=== PATIENT | male | born 1975 | race Caucasian/White ===

== ENCOUNTER 2023-04-11 10:13 | Outpatient (AMB) | payer BC, SELFPAY ==
--- NOTE | 2023-04-11 10:23 | A.OFFVIS_ITS ---
Intake Intake Visit Reasons: Low back pain Fuel Buyer Required: No Assessment & Plan Assessment & Plan (1) Back pain: Code(s): M54.9 - Dorsalgia, unspecified Qualifiers: Back pain location: thoracic back pain Chronicity: chronic Back pain laterality: midline Qualified Code(s): M54.6 - Pain in thoracic spine; G89.29 - Other chronic pain Plan Dear colleague Thank you for referring Garth Newsome to the office today with a chief complaint of upper lumbar back pain. HPI: This 47-year-old male is suffering from chronic back pain in the thoracolumbar region. The pain is constant and progressive. He suffering from this complaint for decades. He constantly wants to correct that part to get relief. Extension makes it better. Second complaint is lower back pain that is more shooting and comes with activity. Denies radiation down his legs. He tried chiropractic therapy in the past which gave him temporary relief. No other treatments done. He is looking for permanent solution. 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 Physical Exam: Pleasant male. Height 6'3 weight 260 lb. There is mild disc omfort on palpation at thoracolumbar area. No neurological deficits. Radiological Studies: An x-ray of the thoracic and lumbar spine show mild degeneration. No deformity. A CT of the lumbar spine is suspicious for osteopenia. An MRI of the lumbar spine is basically normal. Impression/Plan: This patient is suffering from chronic back pain for which there has no surgical solution. I reviewed the imaging with him in detail and pointed out that there is a possibility of osteopenia. I advised him to go to his primary care physician for a bone density test. This possibly could be a reason for back pain. He is also going to look for another chiropractor. He has not interested in injections although he is going to see Dr. Fuentes hydraulic controls technician in the near future Thank you for allowing me to participate in your patients care. total time spent was 30 minutes in counseling ,coordination of plan, personal review of imaging, surgical decision making and subsequent plan Garth Ragland MD, PhD Spine Fellowship Trained Neurosurgeon Director, [facility] Coding Level of Care Code New Pt Level 3 (68926) Diagnoses Chronic midline thoracic back pain M54.6; G89.29 Back pain location: thoracic back pain Chronicity: chronic Back pain laterality: midline
== END 2023-04-11 11:05 | disposition home or self-care (01) ==
PROVIDERS: PCP Internal Medicine; Visit Provider Neurological Surgery
DX: M54.6 Pain in thoracic spine (principal); G89.29 Other chronic pain
CPT/HCPCS: 99203

== ENCOUNTER → 2023-04-11 10:13 | Outpatient (BNVA) | payer BC, SELFPAY | PROVIDERS: PCP Internal Medicine; Visit Provider Neurological Surgery ==

== ENCOUNTER 2023-12-14 07:54 | Day surgery (SDC) | payer BC, SELFPAY ==
[2023-12-12 13:36] VITALS: BMI 32.1
--- OUTSIDE RECORDS SUMMARY | 2023-12-14 07:57 | XMS_ITS ---
Author Organization [facility] Address [address] [place] [id number] Care Team Providers Care Printing Worker Supervisor Name Role Phone JAZLYN GARCIA Primary Care Provide Tank Harvey Unavailable [phone] REASON FOR VISIT prior auth for new egd and colon date Encounters Encounter Location Date Provider Diagnosis [facility] [address] [place] [id number] 07/04/2023 Tank Mueller PLAN OF TREATMENT Next Appt Details Provider Name:Tank Mueller , 2023 09:00:00 AM, [address] [facility] , [place], [place], [phone],
--- OUTSIDE RECORDS SUMMARY | 2023-12-14 07:57 | XMS_ITS ---
Author Organization [facility] Address [address] [place] [address] Care Team Providers Care Collections Clerk Name Role Phone JAZLYN GARCIA Primary Care Provide Tank Harvey Unavailable [phone] REASON FOR VISIT screening,fam hx rectal ca,gerd Encounters Encounter Location Date Provider Diagnosis [facility] [place] [address] [place] [id number] 07/13/2023 Tank Mueller PLAN OF TREATMENT Next Appt Details Provider Name:Tank Mueller , 2023 09:00:00 AM, [address] [place] [address], [phone],
--- OUTSIDE RECORDS SUMMARY | 2023-12-14 07:57 | XMS_ITS | Patient Health Record ---
Author Organization [facility] Address [address] [place] [id number] Care Team Providers Care Buyer Internship Name Role Phone JAZLYN GARCIA Primary Care Provide r Tank Hummel Unavailable [phone] ALLERGIES No Known Allergies REASON FOR REFERRAL No Information MEDICATIONS Medication SIG (Take, Route, Fr equency, Duration) Notes Start Date End Date Status Simvastatin 20 MG 1 tablet in the even ing Orally Once a day for 30 day(s) Active Omeprazole 20 MG 1 capsule 30 minutes before morning meal Orally Once a day for 30 day(s) Active IMMUNIZATIONS Vaccine Route Administration Date Status Comme nts Influenza Unknown 03/26/2023 Administered SOCIAL HISTORY Tobacco Use: Social History Observation Description Date Details (start date - stop date) Former Smoker NA - NA Sex Assigned At : Social History Observation Description Sex Assigned At Unknown Tobacco Use/Smoking Question Answer Notes Patient is a former smoker Alcohol Screen Question Answer Notes Did you have a drink containing alcohol in the p ast year? No Points 0 Interpretation Negative PROBLEMS Problem Type ICD Code Onset Dates Problem Status W/U Status Risk SNOMED Code Notes Problem Family history of rectal cancer (Z80.0) Active confirmed 459627347184222 Problem Gastroesophageal reflux disease, unspecified whether esophagitis present (K21.9) Active confirmed [id number] Problem Colon cancer screening (Z12.11) Active confirmed 224109166 VITAL SIGNS Temperature 97.7 degrees Fahrenheit 04/24/2023 Blood pressure diastolic 00 mm Hg 04/24/2023 Height 6 ft 3 in in 04/24/2023 Blood pressure systolic 000 mm Hg 04/24/2023 Weight 257 lb 2 oz lbs 04/24/2023 BMI 32.13 kg/m2 04/24/2023 Encounters Encounter Location Date Provider Diagnosis [facility] [place] [facility] [address] [place] [id number] 07/13/2023 Tank Mueller [facility] Outpatient [address] [place] [id number] 2023 Tank Mueller [facility] [address] [place] [address] 04/24/2023 Tank Mueller Family history of re ctal cancer Z80.0 ; Gastroesophageal reflux disease, unspecified whether esophagitis present K21.9 and Colon cancer screening Z12.11 [facility] [address] [place] [address] 07/04/2023 Tank Mueller ASSESSMENTS Encounter Date Diagnosis Assessment Notes Treatment Notes Treatment Clinical Notes 04/24/2023 Family history of rectal cancer (ICD-10 - Z80.0) 04/24/2023 Gastroesophageal ref lux disease, unspecified whether esophagitis present (ICD-10 - K21.9) 04/24/2023 Colon cancer screeni ng (ICD-10 - Z12.11) PLAN OF TREATMENT Future Test Test Name Order Date UPPER GI ENDOSCOPY 04/24/2023 COLONOSCOPY 04/24/2023 Next Appt Details Provider Name:Tank Mueller , 2023 09:00:00 AM, [address] [place] [address] , [place], [place], [phone], Insurance Providers Payer Name Payer Address Payer Phone Subscriber Number Group Number Insured Name Patient Relationship to Insured Coverage Start Date Coverage End Date [facility] [address] [place] [address] [id number] [employer] Self - patient is the insured MEDICAL (GENERAL) HISTORY Medical History History ICD Code GERD-told of a hiatal hernia on an UGI; describes a previous EGD > [address] Chávez at [facility] Hyperlipidemia Neg colonoscopy [address] Viridiana Bautista other than some hemorrhoids and hypertrophied anal papillae according to the report Denies FL,DM,CVA,Lung disease,renal dise ase Fatty liver but normal liver profile in January of 2023 Surgical History Surgery Date(Month/Year) appendectomy 1991
--- OUTSIDE RECORDS SUMMARY | 2023-12-14 07:57 | XMS_ITS ---
Author Organization [facility] Address [address] [place] [address] Care Team Providers Care Cloth Examiner Name Role Phone JAZLYN GARCIA Primary Care Provide Tank Harvey Unavailable [phone] REASON FOR VISIT family history of rectum cancer, screening, reflux Encounters Encounter Location Date Provider Diagnosis [facility] [place] Outpatient [address] [place] [id number] 2023 Tank Mueller PLAN OF TREATMENT Next Appt Details Provider Name:Tank Mueller , 2023 09:00:00 AM, [address] [place] [address], [phone],
[2023-12-14 08:19] VITALS: BMI 30.9
[2023-12-14 08:34] VITALS: BP 118/90; PULSE 76; RESP 16; TEMP 36.2; O2SAT 97
[2023-12-14] MEDS: Lactated Ringers 1,000 ML 100 ML IVCONT (08:41)
--- NOTE | 2023-12-14 08:55 | P.CONAN_ITS ---
Documented by User: Sadie Keller NP 12/13/23 08:55 HPI - Anesthesia Eval Consult details Narrative: 47yo M for Upper Endoscopy and Colonoscopy [facility] Active Problems Active Problems: All Active Problems Back pain (Acute) Past Medical History Medical History Fatty liver Elevated cholesterol Hiatal hernia GERD (gastroesophageal reflux disease) Surgical History Surgical History Hx of appendectomy H/O colonoscopy History of esophagogastroduodenoscopy (EGD) Social History Social History (Updated 12/12/23 @ 13:36 by Dulce Wang RN) Household Members: Spouse Are you a primary intensive care unit nurse to a significant other at home: No Do you presently have visiting nurse or other home services: No Patient Tobacco Use Status: Former Tobacco user Tobacco use type: Cigarette Use of substances other than those prescribed or required for medical reasons: No Have you been hit, kicked, punched, or otherwise hurt by someone within the past year? If so, by whom?: No Are you DNR?: No Advance Directives: No Advance Directives Information Provided: Yes Recently lost weight without trying: No Nutrition Risks: No Nutritional Risk Poor oral hygiene: No Meds Allergies Allergy/AdvReac Type Severity Reaction Status Date / Time bee pollen [bee stings] AdvReac Swelling Verified 12/14/23 08:39 Home Medications ?Medication ?Instructions ?Recorded ?Confirmed ?Last Taken ?Type omeprazole 20 mg capsule,delayed 20 mg PO DAILY 12/12/23 12/12/23 Unknown History release Exam Height,Weight and Vital Signs: Height 6 ft 3 in Weight 116.63 kg Assessment and Plan Assessment Anesthesia Assessment: Chart Reviewed Documented by User: Mary Hemphill DO 12/14/23 08:57 PMFSH Past Medical History Medical History Fatty liver Elevated cholesterol Hiatal hernia GERD (gastroesophageal reflux disease) Family History Family history of problems with anesthesia: No Surgical History Surgical History Hx of appendectomy H/O colonoscopy History of esophagogastroduodenoscopy (EGD) History of Problems with Anesthesia: No Social History Social History (Updated 12/12/23 @ 13:36 by Dulce Wang RN) Household Members: Spouse Are you a primary intensive care unit nurse to a significant other at home: No Do you presently have visiting nurse or other home services: No Patient Tobacco Use Status: Former Tobacco user Tobacco use type: Cigarette Use of substances other than those prescribed or required for medical reasons: No Have you been hit, kicked, punched, or otherwise hurt by someone within the past year? If so, by whom?: No Are you DNR?: No Advance Directives: No Advance Directives Information Provided: Yes Recently lost weight without trying: No Nutrition Risks: No Nutritional Risk Poor oral hygiene: No Meds Allergies Allergy/AdvReac Type Severity Reaction Status Date / Time bee pollen [bee stings] AdvReac Swelling Verified 12/14/23 08:39 Home Medications ?Medication ?Instructions ?Recorded ?Confirmed ?Last Taken ?Type omeprazole 20 mg capsule,delayed 20 mg PO DAILY 12/12/23 12/12/23 Unknown History release Exam Exam Date and Time: 12/14/23 0855 Height,Weight and Vital Signs: Height 6 ft 3 in Weight 116.63 kg Height 6 ft 3 in Weight 112.037 kg Vital Signs Temperature 97.1 F 12/14/23 08:34 Pulse Rate 76 12/14/23 08:34 Respiratory Rate 16 12/14/23 08:34 Blood Pressure 118/90 H 12/14/23 08:34 Pulse Oximetry 97 12/14/23 08:34 Oxygen Delivery Method Room Air 12/14/23 08:34 Temperature 97.1 F 12/14/23 08:34 Pulse Rate 76 12/14/23 08:34 Respiratory Rate 16 12/14/23 08:34 Blood Pressure 118/90 H 12/14/23 08:34 Pulse Oximetry 97 12/14/23 08:34 Oxygen Delivery Method Room Air 12/14/23 08:34 Airway Mallampati Class: II TM Dist: >3cm Neck ROM: Full Loose/Missing/Broken Teeth: No (patient denies any loose or broken teeth) Heart: S1S2 Lungs: CTAB Assessment and Plan Assessment Anesthesia Assessment: Anesthesia Plan Discussed and Chart Reviewed Final Anesthetic Review Family History of Problems with Anesthesia: No History of Problems with Anesthesia: No NPO: Yes ASA Class: II Final Preanesthetic Review: No Changes in Pt Med Stat, Meds/Allgs Chart Reviewed, Consent Obtained/Reviewed and Anes Risks/Benef Reviewed Patient Risk: Low Procedure Risk: Low Anesthetic Plan Anesthetic Plan: MAC: and Agree w/ Assess. and Plan Disposition: Standard PACU
[2023-12-14 10:02] VITALS: BP 102/67; PULSE 68; RESP 18; TEMP 36.1; O2SAT 93
--- NOTE | 2023-12-14 10:08 | P.BOP_ITS ---
Brief Operative Note Date of Service: 12/14/23 Pre-op diagnosis: GERD, Screening Post-op diagnosis: other (Hiatal hernia, Gastritis, Diverticulosis) Procedure: EGD with biopsies, Colonoscopy to the cecum and TI Surgeon: Tank Mueller MD Anesthesia: MAC Was an Business Applications Manager used for this Procedure?: No Estimated blood loss (mL): 2.0 Pathology: other (A. Gastric antrum B. EG Junction at 38cm C. Gastric polyps) Condition: stable Disposition: PACU
[2023-12-14 10:17] VITALS: BP 123/67; PULSE 75; RESP 16; TEMP 36.2; O2SAT 97
[2023-12-14 10:32] VITALS: BP 122/78; PULSE 73; RESP 18; TEMP 36.2; O2SAT 98
--- NOTE | 2023-12-14 10:36 | OP_ITS ---
DATE OF SERVICE: 12/14/2023 SURGEON: Tank Mueller MD INDICATIONS: The patient presents for evaluation of chronic gastroesophageal reflux, family history of colon cancer, and colorectal cancer screening. Full consent has been obtained for this, including risks of bleeding and perforation. PREOPERATIVE DIAGNOSIS: POSTOPERATIVE DIAGNOSIS: PROCEDURE PERFORMED: Esophagogastroduodenoscopy with biopsies and colonoscopy to the cecum and terminal ileum. ESTIMATED BLOOD LOSS: COMPLICATIONS: ANESTHESIA: Monitored anesthesia care. ASSISTANTS: SPECIMENS: POSTOPERATIVE DIAGNOSES: HIatal hernia, rule out Hartman's esophagus, gastric polyps, gastritis, diverticulosis, and internal hemorrhoids. DESCRIPTION OF PROCEDURE: The patient was placed in the left lateral decubitus position. The Olympus video gastroscope was passed in the posterior oropharynx and upper esophagus under direct vision. The scope was passed slowly to the distal esophagus. The gastroesophageal junction appeared at 38 cm at this level was some slight irregularity with small, less than 1 cm areas of possible Hartman mucosa. There was no esophagitis nor any lesions. The scope entered the stomach. There was a small hiatal hernia. The hiatal hernia mucosa appeared normal. The scope was advanced to the pylorus, and the duodenum was cannulated to the descending portion. The duodenum including the bulb appeared normal without mass or ulceration. The scope was withdrawn back to the stomach. The gastric antrum had areas of gastritis with some edema, erythema, and minimal friability. There were no ulcerations nor mass. There was good peristalsis. Biopsies were obtained from the antrum. The scope was retroflexed visualizing the proximal stomach carefully, which appeared normal, without any sign of mass or ulceration, other than several hyperplastic polyps, which were biopsied. The scope was straightened and withdrawn back to the esophagus. Multiple biopsies were obtained at the EG junction at 38 cm. Proximal to this, the esophageal mucosa appeared normal. Scope was withdrawn from the patient. He was turned around for colonoscopy. The digital rectal exam revealed no abnormalities. The Olympus video pediatric colonoscope was entered into the rectum and advanced easily to the cecum. Once in the cecum, I did identify normal-appearing cecal pouch with appendiceal orifice and a normal-appearing ileocecal valve. The terminal ileum was cannulated and appeared normal. The scope was withdrawn back in the colon. The entire cecum and ileocecal valve appeared normal. The scope was slowly withdrawn assessing all mucosal surfaces carefully. Preparation was excellent. I did not visualize any sign of polyps, colitis, nor angiodysplasia. There was a mild amount of sigmoid diverticulosis. In the rectum, scope was retroflexed visualizing some small internal hemorrhoids, but no other pathology. The rectal mucosa appeared normal. The scope was straightened and withdrawn from the patient. He tolerated both procedures well and was returned to the recovery area in stable condition. IMPRESSION: 1. Small hiatal hernia, rule out Hartman esophagus. 2. Gastritis. 3. Gastric polyps. 4. Diverticulosis. 5. Internal hemorrhoids. PLAN: The results of the biopsy will be checked. I would recommend a repeat colonoscopy in 5 years for further screening given the family history of colorectal cancer in his father in his 60s. If there is evidence of Hartman esophagus without dysplasia, I would recommend a repeat upper endoscopy in 3 years. He was advised not to use any aspirin and NSAIDs for at least 1 week. He was advised to continue his daily omeprazole for his reflux and daily MiraLAX as needed for any constipation. He will otherwise see me on a p.r.n. basis. MD NANCY Wolf/MATT / [id number] MTDDarrin
== END 2023-12-14 10:45 | disposition home or self-care (01) ==
PROVIDERS: PCP Internal Medicine; Visit Provider Internal Medicine
PROC: (CPT 45378; principal; 2023-12-14 09:00)
DX: Z12.11 Encounter for screening for malignant neoplasm of colon (principal); Z80.0 Family history of malignant neoplasm of digestive organs; K57.30 Diverticulosis of large intestine without perforation or abscess without bleeding; K64.8 Other hemorrhoids; K21.9 Gastro-esophageal reflux disease without esophagitis; K29.50 Unspecified chronic gastritis without bleeding; K44.9 Diaphragmatic hernia without obstruction or gangrene; K31.7 Polyp of stomach and duodenum; K76.0 Fatty (change of) liver, not elsewhere classified; E78.5 Hyperlipidemia, unspecified; Z79.899 Other long term (current) drug therapy; Z87.891 Personal history of nicotine dependence
CPT/HCPCS: 45378; 43239; 88305; 88313; 88342; J2704